=== PATIENT | male | born 1960 | race Two or more races ===

== ENCOUNTER 2018-11-10 10:20 | Emergency (ER) | payer SELFPAY ==
[~2018-11-10] VITALS: Ht 172.7 cm; Wt 81.6 kg
[2018-11-10 10:20] VITALS: BP 148/100
--- NOTE | 2018-11-10 11:46 | NUR ---
Patient discharged to home in stable condition. Written and verbal after care instructions given. Patient verbalizes understanding of instruction.
== END 2018-11-10 11:45 | disposition home or self-care (01) ==
LOC: ER 10:22
DX: S63.690A Other sprain of right index finger, initial encounter (principal); I10 Essential (primary) hypertension; W23.0XXA Caught, crushed, jammed, or pinched between moving objects, initial encounter; Y93.53 Activity, golf; Y92.89 Other specified places as the place of occurrence of the external cause; Y99.8 Other external cause status
CPT/HCPCS: 29130; 73140; 99283; A4606; Z7610

== ENCOUNTER 2021-04-17 11:11 | Emergency (ER) | payer OTHER ==
[~2021-04-17] VITALS: Ht 172.7 cm; Wt 81.6 kg
[2021-04-17 11:11] VITALS: BP 140/76
--- NOTE | 2021-04-17 11:15 | NUR ---
THE PATIENT BIBS FOR C/O LEFT FOOT PAIN/SWELLING X 1 WEEK,DENIES ANY TRAUMA. RATES PAIN /10. WILL CONTINUE TO MONITOR THE PATIENT.
[2021-04-17] MEDS ORDERED: CEPH500C2 PO (14:44)
[2021-04-17] MEDS ORDERED: SULF1TAB48 PO (14:44)
[2021-04-17] MEDS ORDERED: IBUP-1955 PO (14:44)
--- NOTE | 2021-04-17 15:02 | NUR ---
Patient discharged to home in stable condition. Written and verbal after care instructions given. Patient verbalizes understanding of instruction.
== END 2021-04-17 15:03 | disposition home or self-care (01) ==
LOC: ER 11:17
DX: L03.115 Cellulitis of right lower limb (principal); I10 Essential (primary) hypertension
CPT/HCPCS: 73630-TC